=== PATIENT | female | born 1965 | race Caucasian/White ===

== ENCOUNTER 2020-10-18 12:15 | Inpatient (IN) | payer MEDICARE, SELFPAY ==
[2020-10-18] VITALS (20 sets, daily range): BP systolic 130–166; BP diastolic 53–93; PULSE 78–86; RESP 15–23; TEMP 37.5–38.8; O2SAT 88–97; BMI 35.5
--- NOTE | ~2020-10-18 | XR_ITS ---
XR chest 2V 10/18/2020 12:57 Indication: Shortness of breath. Midsternal chest pain. Procedure: 2 view chest Comparison: No prior studies for comparison. Findings: Right basilar airspace disease, consistent with pneumonia. Small right pleural effusion. He art size is normal. Left lung clear. No pneumothorax. No edema. No acute osseous abnormality. Impression: 1: Right basilar airspace disease, consistent with pneumonia. Reviewed, dictated and finalized at location B. Impression: 1: Right basilar airspace disease, consistent with pneumonia.
--- NOTE | 2020-10-18 12:19 | ECG_ITS ---
Measurements Intervals [place] Rate: 86 P: 151 MT: 159 QRS: 222 QRSD: 111 T: 126 QT: 351 QTc: 421 Interpretive Statements SINUS RHYTHM LIMB LEAD REVERSAL POOR R WAVE PROGRESSION, ANTERIOR LEADS BORDERLINE ECG Electronically Signed On 10-18-2020 13:11:18 CDT by Grant Moore D.O.
[2020-10-18 12:49] LABS: Basophils Percent Auto 0.3 % (0.2-1.2); Hematocrit 42.1 % (37.0-47.0); Hemoglobin 13.8 g/dL (12.0-15.0); Immature Granulocyte Absolute 0.04 K/mm3 (0.00-0.031); Immature Granulocyte Percent A 0.3 % (0-0.5); Lymphocytes Absolute Auto 0.91 K/mm3 (0.9-3.2); Lymphocytes Percent Auto 7.8 % (18.3-44.2); Mean Corpuscular HGB Conc 32.8 g/dl (32-36); Mean Corpuscular Hemoglobin 31.9 pg (26-34); Mean Corpuscular Volume 97.2 fl (80-100); Mean Platelet Volume 9.4 fl (7.4-10.4); Monocytes Absolute Auto 1.1 K/mm3 (0.1-0.6); Neutrophils Absolute Auto 9.7 K/mm3 (1.3-6.7); Neutrophils Percent Auto 82.6 % (45.5-73.1); Platelet Count Result 179 k/mm3 (150-375); Red Blood Count 4.33 M/mm3 (4.2-5.4); Red Cell Distribution Width 12.2 % (11.5-14.5); White Blood Count 11.7 K/mm3 (4.5-10.0)
[2020-10-18 13:08] LABS: Anion Gap 5 mmol/L (8-16); Blood Urea Nitrogen 11 mg/dL (7-17); Calcium 9.1 mg/dL (8.4-10.2); Carbon Dioxide 31 mmol/L (22-30); Chloride 102 mmol/L (98-107); Estimated CRCL calculation 102 ml/min; Estimated Glomerular Filt Rate > 60; Glucose 126 mg/dL (65-105); Potassium 3.9 mmol/L (3.4-5.0); Sodium 138 mmol/L (137-145)
--- NOTE | 2020-10-18 13:18 | ED.SOB ---
HPI - SOB/Dyspnea General Chief Complaint: Shortness of Breath/Dyspnea Stated Complaint: cough, shortness of breath Time Seen by Provider: 10/18/20 13:14 Source: RN notes reviewed History of Present Illness HPI Narrative: Patient presents emergency department from home for shortness of breath. Patient states she has a history of COPD and still smokes cigarettes states that for the past 2 days she has been feeling more short of breath with a cough this been nonproductive she notes a subjective fever with that she denies any chest pain or abdominal pain does note intermittent nausea patient states she has had both Covid vaccines with second vaccine at the beginning of September denies any other symptoms at this time Related Data Home Medications Medication Instructions Recorded Confirmed albuterol mcg INHALATION QID PRN 10/18/20 apixaban [Eliquis] 5 mg PO BID 10/18/20 diltiazem HCl BID 10/18/20 gabapentin 100 mg PO DAILY 10/18/20 gabapentin 300 mg PO HS 10/18/20 lisinopril 20 mg PO BID 10/18/20 oxycodone 7.5 mg PO Q8H PRN 10/18/20 10/18/20 Allergies Allergy/AdvReac Type Severity Reaction Status Date / Time No Known Allergies Allergy Verified 10/18/20 13:07 Review of Systems Review of Systems: Narrative: Gen.: See HPI Eyes: Denies eye pain or visual change ENT: Denies congestion Respiratory: Reports cough and shortness of breath CV: Denies chest pain or palpitations GI: Denies abdominal pain emesis or diarrhea reports nausea Musculoskeletal: Denies back pain or muscle pain Neuro: Denies numbness, tingling, weakness or focal weakness Skin: Denies rash Except as documented, all other systems reviewed and negative [facility] Past Medical History Medical History (Updated 10/18/20 @ 14:07 by Ronan Vizcarra DO) COPD (chronic obstructive pulmonary disease) Social History Social History (Updated 10/18/20 @ 13:20 by Ronan Vizcarra DO) Smoking status: Current every day smoker Gender identity (if verbalized by the patient): Female Exam Narrative: Exam Narrative: APPEARANCE: No acute distress, nontoxic, resting in bed EYES: EOMI HEENT: Normocephalic, atraumatic, OMM RESPIRATORY: No respiratory distress wheezing throughout the bilateral lung palm with coarse breath sounds in the bases CARDIOVASCULAR: Regular rate and rhythm without murmurs rubs or gallops. ABDOMINAL: Soft, nontender, nondistended, no rebound or guarding MUSCULOSKELETAl: Moves all extremities. No clubbing, cyanosis or edema. NEURO: Awake and alert. Following commands, speech normal, no focal deficits SKIN:: Warm, dry. No rashes lesions or abrasions PSYCHIATRIC: Normal affect/mood, Course Course Emergency Course: Discussed with RADHA Butt for Dr Patino presentation work-up agrees with admission at this time. Agrees with plan to swab for Covid Discussed with patient and family results of workup and diagnosis. Discussed need for admission. Patient and family understand and agree to current treatment plan Vital Signs Vital signs: Vital Signs Temperature 101.8 F H 10/18/20 12:29 Pulse Rate 86 10/18/20 12:29 Respiratory Rate 18 10/18/20 12:29 Blood Pressure 141/93 H 10/18/20 12:29 Pulse Oximetry 88 L 10/18/20 12:29 Temperature 101.8 F H 10/18/20 12:29 Pulse Rate 78 10/18/20 13:40 Respiratory Rate 18 10/18/20 13:40 Blood Pressure 163/79 H 10/18/20 13:03 Pulse Oximetry 91 10/18/20 13:07 MDM - SOB/Dyspnea Lab Data Result diagrams: 10/18/20 12:42 10/18/20 12:42 Labs: Lab Results 10/18/20 10/18/20 10/18/20 Range/Units 12:42 12:42 13:32 WBC 11.7 H (4.5-10.0) K/mm3 RBC 4.33 (4.2-5.4) M/mm3 Hgb 13.8 (12.0-15.0) g/dL Hct 42.1 (37.0-47.0) % MCV 97.2 (80-100) fl MCH 31.9 (26-34) pg MCHC 32.8 (32-36) g/dl RDW 12.2 (11.5-14.5) % Plt Count 179 (150-375) k/mm3 MPV 9.4 (7.4-10.4) fl Immature Gran % (Auto) 0.3 (0-0.5) % N
[2020-10-18] MEDS: ALBUTEROL SULFATE NEB 2.5 MG/0.5 ML INH 5 MG INHALATION ×2 (13:29→21:44)
[2020-10-18] MEDS: IPRATROPIUM BR 0.02% INH SOLN 0.5 MG/2.5 ML VIAL INHALATION ×2 (13:30→21:44)
[2020-10-18 14:00] LABS: Lactic Acid Reflex 0.7 mmol/L (0.7-2.1)
[2020-10-18] MEDS: SODIUM CHLORIDE 0.9% IV 1,000 ML 999 ML IV CONT (14:49)
--- NOTE | 2020-10-18 15:30 | PM.IMHP ---
H&P: HPI History of Present Illness Date/Time: 10/18/20 15:30 Chief Complaint: Shortness of breath. Narrative: This is a 54-year-old female smoker with paroxysmal atrial fibrillation, history of pulmonary embolism, chronic obstructive pulmonary disease, and hypertension who presented to the emergency department earlier today via private vehicle from home for evaluation of shortness of breath. She has not been feeling well for a couple of days with symptoms to include chills, nausea, body aches, sore throat, nonproductive cough, and shortness of breath. She and her grand children are traveling through the area on their way back to [place], and she does report that her granddaughter had similar upper respiratory symptoms at [facility] attributed to allergies however she was recently diagnosed with an ear infection. On arrival to the emergency department her SpO2 was 90% and she was found to have right basilar pneumonia and she is being admitted in this setting. She does report having a history of pneumonia and this feels similar to those previous episodes. She received her 2nd shot in the Moderna COVID vaccination series within the past 2 and half weeks. She has no known exposure to those positive for COVID-19. She has not had a documented fever but reports subjective fever. She has some mild pleuritic pain on the right but no exertional chest pain. She denies orthopnea, PND, and lower extremity edema. Appetite has not been good but no significant nausea or vomiting. She denies anosmia and dysgeusia. Review of Systems Review of Systems: Narrative: Twelve systems were reviewed with pertinent positives and negatives as per HPI. No significant headache. No earache. She denies exertional chest pain. No significant wheezing. Denies vomiting. Has had some loose stools but no overt diarrhea. No dysuria. Except as documented, all other systems were reviewed and are negative. [facility] Past Medical History Medical History Anxiety Chronic anticoagulation Chronic obstructive pulmonary disease Chronic pain History of pulmonary embolism Hypertension Paroxysmal atrial fibrillation Tobacco dependence Surgical History Surgical History (Updated 10/18/20 @ 23:23 by Filomena Mckeon PA-C) History of tubal ligation Family History Family History (Updated 10/18/20 @ 23:23 by Filomena Mckeon PA-C) Other Hypertension Social History Social History (Updated 10/18/20 @ 23:24 by Filomena Mckeon PA-C) Social History: The patient lives in [place] with her grand children whom she was recently awarded custody of after her daughter was murdered a couple of years ago. She smokes about a pack of cigarettes per day. Denies alcohol and illicit substance abuse. Unemployed, on disability. She designates her significant other, Reuben Shafer, as her surrogate decision maker. Code status: Full code. Smoking packs per day: 1 Smoking cigarettes per day: 20.0 Years smoked: 38 Smoking pack-years: 38.00 Smoking status: Current every day smoker Tobacco type: cigarettes Alcohol intake: current Drinks per week: 1 Substance use: never Gender identity (if verbalized by the patient): Female Spiritual care concerns: No Meds Home Medications and Allergies Home Medications Medication Instructions Recorded Confirmed Type albuterol 90 mcg INHALATION QID PRN 10/18/20 10/18/20 History apixaban [Eliquis] 5 mg PO BID 10/18/20 10/18/20 History bupropion HCl 150 mg PO DAILY 10/18/20 10/18/20 History bupropion HCl 300 mg PO HS 10/18/20 10/18/20 History diltiazem HCl 30 mg PO BID 10/18/20 10/18/20 History gabapentin 100 mg PO DAILY 10/18/20 10/18/20 History gabapentin 200 mg PO HS 10/18/20 10/18/20 History lisinopril 20 mg PO BID 10/18/20 10/18/20 History oxycodone 7.5 mg PO Q8H PRN 10/18/20 10/18/20 History Allergies Allergy/AdvReac Type Severity Reaction Status Date / Time
--- NOTE | 2020-10-18 16:27 | PC.NURSE ---
This patient, Dayna Tinoco, was admitted to [facility] Surg Room 320-01. Patient/family oriented to hospital policies and general routines including ID bracelet, bed and alarms, visiting hours, pain management, procedures, bathroom and other care routines, personal items, smoking policy, room service/diet, and visiting hours. Information on how to activate the Rapid Response Team has been discussed. Patient/Family are encouraged to report perceived risks to care and to ask questions if they do not understand what they are told or what they should do.
[2020-10-19] VITALS (17 sets, daily range): BP systolic 106–152; BP diastolic 59–83; PULSE 67–86; RESP 18–20; TEMP 36.4–37.9; O2SAT 90–95
[2020-10-19] MEDS: APIXABAN 5 MG TABLET PO ×3 (00:21→17:04)
[2020-10-19] MEDS: dilTIAZem HCL 30 MG TABLET PO ×3 (00:22→20:51)
[2020-10-19] MEDS: buPROPion HCL XL (24 HR) 150 MG TABCR 300 MG PO ×2 (00:22→20:53)
[2020-10-19] MEDS: guaiFENesin 12 HR 600 MG TABCR PO ×3 (00:23→20:54)
[2020-10-19] MEDS: GABAPENTIN 100 MG CAPSULE 200 MG PO ×2 (00:23→20:52)
[2020-10-19] MEDS: lisinopriL 20 MG TABLET PO ×3 (00:24→20:52)
[2020-10-19] MEDS: ALBUTEROL SULFATE NEB 2.5 MG/0.5 ML INH 5 MG INHALATION ×3 (03:28→21:22)
[2020-10-19] MEDS: IPRATROPIUM BR 0.02% INH SOLN 0.5 MG/2.5 ML VIAL INHALATION ×3 (03:28→21:23)
[2020-10-19 06:39] LABS: Basophils Percent Auto 0.2 % (0.2-1.2); Eosinophils Percent Auto 0.2 % (0-4.4); Hemoglobin 12.1 g/dL (12.0-15.0); Immature Granulocyte Absolute 0.03 K/mm3 (0.00-0.031); Immature Granulocyte Percent A 0.3 % (0-0.5); Lymphocytes Absolute Auto 1.57 K/mm3 (0.9-3.2); Lymphocytes Percent Auto 16.4 % (18.3-44.2); Mean Corpuscular HGB Conc 31.8 g/dl (32-36); Mean Corpuscular Hemoglobin 31.3 pg (26-34); Mean Corpuscular Volume 98.2 fl (80-100); Mean Platelet Volume 9.9 fl (7.4-10.4); Monocytes Percent Auto 10.1 % (2.6-8.5); Neutrophils Percent Auto 72.8 % (45.5-73.1); Platelet Count Result 172 k/mm3 (150-375); Red Blood Count 3.87 M/mm3 (4.2-5.4); Red Cell Distribution Width 12.4 % (11.5-14.5); White Blood Count 9.6 K/mm3 (4.5-10.0)
[2020-10-19 07:05] LABS: Alanine Aminotransferase 37 U/L (4-35); Albumin Level 3.7 g/dL (3.5-5.1); Alkaline Phosphatase 123 U/L (38-126); Anion Gap 4 mmol/L (8-16); Aspartate Amino Transferase 43 U/L (14-36); Bilirubin,Total 0.4 mg/dL (0.2-1.3); Blood Urea Nitrogen 11 mg/dL (7-17); CRP 25.7 mg/dL (<1.0); Calcium 8.8 mg/dL (8.4-10.2); Carbon Dioxide 31 mmol/L (22-30); Chloride 105 mmol/L (98-107); Estimated CRCL calculation 102 ml/min; Estimated Glomerular Filt Rate > 60; Glucose 95 mg/dL (65-105); Magnesium 2.1 mg/dL (1.6-2.3); Potassium 3.6 mmol/L (3.4-5.0); Sodium 140 mmol/L (137-145)
[2020-10-19 09:03] LABS: Lactate Dehydrogenase 468 U/L (313-618)
[2020-10-19] MEDS: buPROPion HCL XL (24 HR) 150 MG TABCR PO (09:30)
[2020-10-19] MEDS: GABAPENTIN 100 MG CAPSULE PO (09:30)
[2020-10-19] MEDS: BUDESONIDE/FORMOTEROL (*SP) 160-4.5 MCG 6 GM INH 2 PUFF INHALATION ×2 (09:51→21:22)
--- NOTE | 2020-10-19 14:20 | PM.IMPN ---
Progress Note: A&P Assessment and Plan (1) Acute respiratory failure with hypoxia: Code(s): J96.01 - Acute respiratory failure with hypoxia Status: Acute Assessment and Plan: The patient is a 54-year-old woman with a history of tobacco abuse, hypertension, paroxysmal atrial fibrillation on Eliquis, who presented to the emergency room for shortness of breath, productive cough, confusion and lightheadedness which has been gradually worsening over the last 2 days. The patient is currently traveling with her family and on her way back home to [place]. She just finished her COVID vaccination about 2 and half weeks ago. she decided to come to the emergency room after she was feeling very weak, fatigued, short of breath and lightheaded for further evaluation. Initial vitals show she has a fever of 101.8?, non tachycardic, respiratory rate 18, blood pressure 141/93, oxygen saturation was hypoxic at 88% on room air. Initial labs show leukocytosis at 11,700, with elevated neutrophils 82%. Normal CMP other than elevated glucose at 126. CRP was elevated at 25. Chest x-ray shows right basilar airspace disease consistent with pneumonia. Due to recent travel and new shortness of breath with hypoxia the patient is being screened for COVID-19. She was admitted into the hospital in an isolation room for acute hypoxia respiratory failure, pneumonia on IV antibiotics and COPD exacerbation on IV Solu-Medrol. Blood culture showed no growth at this time pending COVID test continue IV antibiotics continue DuoNeb treatments q.6 hours will start IV Solu-Medrol for acute COPD exacerbation due to increased wheezing on examination continue to wean oxygen as tolerated. Continue monitoring respiratory status. (2) Community acquired pneumonia: Code(s): J18.9 - Pneumonia, unspecified organism Status: Acute Assessment and Plan: The patient has been started on azithromycin and ceftriaxone for presumed community-acquired pneumonia. Sputum to be attempted for culture. continue monitoring. (3) Person under investigation for COVID-19: Code(s): Z20.822 - Contact with and (suspected) exposure to COVID-19 Status: Acute Assessment and Plan: Patient will remain in isolation pending SARS-CoV-2 by PCR. (4) Hypertension: Code(s): I10 - Essential (primary) hypertension Status: Acute Assessment and Plan: Blood pressure normal at 136/73 this morning. Continue antihypertensives and monitor closely. (5) Paroxysmal atrial fibrillation: Code(s): I48.0 - Paroxysmal atrial fibrillation Status: Acute Assessment and Plan: Currently in a sinus rhythm. Continue diltiazem and Eliquis. (6) Chronic obstructive pulmonary disease: Code(s): J44.9 - Chronic obstructive pulmonary disease, unspecified Status: Acute Assessment and Plan: she is having increased wheezing today on my examination. I am going to start IV Solu-Medrol, scheduled DuoNebs q.6 hours and continue monitoring her respiratory status. (7) Tobacco dependence: Code(s): F17.200 - Nicotine dependence, unspecified, uncomplicated Status: Acute Assessment and Plan: Smoking cessation was discussed for 3 minutes. She declines the need for a nicotine patch at this time. She is interested in quitting after discharge since she has already gone 3 days without a cigarette (8) Chronic anticoagulation: Code(s): Z79.01 - FDC (current) use of anticoagulants Status: Acute Assessment and Plan: Continue apixaban.
--- NOTE | 2020-10-19 15:38 | PCRCNOTE ---
Window of time for administration has passed. See next scheduled administration.
[2020-10-19 16:57] LABS: SARS-CoV-2 RNA PCR Negative
[2020-10-19] MEDS: ACETAMINOPHEN 325 MG TABLET 650 MG PO (17:04)
[2020-10-19] MEDS: methylPREDNISolone SOD SUCC 125 MG VIAL IV PUSH (17:05)
[2020-10-19] MEDS: oxyCODONE HCL (*CRX) 5 MG TAB IR PO ×2 (17:15→21:53)
[2020-10-19] MEDS: oxyCODONE HCL (*CRX) 2.5 MG TAB IR PO (17:15)
[2020-10-20] VITALS (15 sets, daily range): BP systolic 116–161; BP diastolic 64–85; PULSE 70–88; RESP 14–20; TEMP 36.5–37.2; O2SAT 92–98
[2020-10-20] MEDS: methylPREDNISolone SOD SUCC 125 MG VIAL 60 MG IV PUSH ×4 (01:11→17:14)
[2020-10-20] MEDS: IPRATROPIUM BR 0.02% INH SOLN 0.5 MG/2.5 ML VIAL INHALATION ×3 (02:50→21:01)
[2020-10-20] MEDS: ALBUTEROL SULFATE NEB 2.5 MG/0.5 ML INH 5 MG INHALATION ×3 (02:50→21:01)
[2020-10-20] MEDS: ACETAMINOPHEN 325 MG TABLET 650 MG PO (05:36)
[2020-10-20 07:21] LABS: Alanine Aminotransferase 51 U/L (4-35); Albumin Level 3.9 g/dL (3.5-5.1); Alkaline Phosphatase 148 U/L (38-126); Anion Gap 8 mmol/L (8-16); Aspartate Amino Transferase 48 U/L (14-36); Bilirubin,Total 0.1 mg/dL (0.2-1.3); Blood Urea Nitrogen 14 mg/dL (7-17); CRP 23.2 mg/dL (<1.0); Calcium 9.2 mg/dL (8.4-10.2); Carbon Dioxide 29 mmol/L (22-30); Chloride 106 mmol/L (98-107); Estimated CRCL calculation 117 ml/min; Estimated Glomerular Filt Rate > 60; Glucose 171 mg/dL (65-105); Potassium 3.6 mmol/L (3.4-5.0); Sodium 143 mmol/L (137-145)
[2020-10-20] MEDS: dilTIAZem HCL 30 MG TABLET PO ×2 (10:17→20:43)
[2020-10-20] MEDS: buPROPion HCL XL (24 HR) 150 MG TABCR PO (10:17)
[2020-10-20] MEDS: guaiFENesin 12 HR 600 MG TABCR PO ×2 (10:17→20:43)
[2020-10-20] MEDS: GABAPENTIN 100 MG CAPSULE PO (10:18)
[2020-10-20] MEDS: lisinopriL 20 MG TABLET PO ×2 (10:18→20:43)
[2020-10-20] MEDS: APIXABAN 5 MG TABLET PO ×2 (10:18→17:14)
[2020-10-20] MEDS: oxyCODONE HCL (*CRX) 2.5 MG TAB IR PO (10:20)
[2020-10-20] MEDS: oxyCODONE HCL (*CRX) 5 MG TAB IR PO ×2 (10:20→20:49)
--- NOTE | 2020-10-20 10:26 | PCRCNOTE ---
Window of time for administration has passed. See next scheduled administration.
--- NOTE | 2020-10-20 15:24 | PM.IMPN ---
Progress Note: A&P Assessment and Plan (1) Acute respiratory failure with hypoxia: Code(s): J96.01 - Acute respiratory failure with hypoxia Status: Acute Assessment and Plan: The patient is a 54-year-old woman with a history of tobacco abuse, hypertension, paroxysmal atrial fibrillation on Eliquis, who presented to the emergency room for shortness of breath, productive cough, confusion and lightheadedness which has been gradually worsening over the last 2 days. The patient is currently traveling with her family and on her way back home to [place]. She just finished her COVID vaccination about 2 and half weeks ago. she decided to come to the emergency room after she was feeling very weak, fatigued, short of breath and lightheaded for further evaluation. Initial vitals show she has a fever of 101.8?, non tachycardic, respiratory rate 18, blood pressure 141/93, oxygen saturation was hypoxic at 88% on room air. Initial labs show leukocytosis at 11,700, with elevated neutrophils 82%. Normal CMP other than elevated glucose at 126. CRP was elevated at 25. Chest x-ray shows right basilar airspace disease consistent with pneumonia. Due to recent travel and new shortness of breath with hypoxia the patient is being screened for COVID-19. She was admitted into the hospital in an isolation room for acute hypoxia respiratory failure, pneumonia on IV antibiotics and COPD exacerbation on IV Solu-Medrol. Blood culture showed no growth at this time COVID test Negative continue IV antibiotics for pneumonia COPD exacerbation-continue DuoNeb treatments q.6 hours and continue Solu-Medrol continue to wean oxygen as tolerated. Continue monitoring respiratory status. (2) Community acquired pneumonia: Code(s): J18.9 - Pneumonia, unspecified organism Status: Acute Assessment and Plan: The patient has been started on azithromycin and ceftriaxone for presumed community-acquired pneumonia. Sputum to be attempted for culture. continue monitoring. (3) Person under investigation for COVID-19: Code(s): Z20.822 - Contact with and (suspected) exposure to COVID-19 Status: Acute Assessment and Plan: Patient will remain in isolation pending SARS-CoV-2 by PCR. (4) Hypertension: Code(s): I10 - Essential (primary) hypertension Status: Acute Assessment and Plan: Blood pressure normal at 147/85 this morning. Continue antihypertensives and monitor closely. (5) Paroxysmal atrial fibrillation: Code(s): I48.0 - Paroxysmal atrial fibrillation Status: Acute Assessment and Plan: Currently in a sinus rhythm. Continue diltiazem and Eliquis. (6) Chronic obstructive pulmonary disease: Code(s): J44.9 - Chronic obstructive pulmonary disease, unspecified Status: Acute Assessment and Plan: she is having increased wheezing today on my examination. I am going to start IV Solu-Medrol, scheduled DuoNebs q.6 hours and continue monitoring her respiratory status. (7) Tobacco dependence: Code(s): F17.200 - Nicotine dependence, unspecified, uncomplicated Status: Acute Assessment and Plan: Smoking cessation was discussed for 3 minutes. She declines the need for a nicotine patch at this time. She is interested in quitting after discharge since she has already gone 3 days without a cigarette (8) Chronic anticoagulation: Code(s): Z79.01 - FPC (current) use of anticoagulants Status: Acute Assessment and Plan: Continue apixaban. T
[2020-10-20] MEDS: buPROPion HCL XL (24 HR) 150 MG TABCR 300 MG PO (20:42)
[2020-10-20] MEDS: GABAPENTIN 100 MG CAPSULE 200 MG PO (20:44)
[2020-10-20] MEDS: BUDESONIDE/FORMOTEROL (*SP) 160-4.5 MCG 6 GM INH 2 PUFF INHALATION (21:09)
[2020-10-21] VITALS (16 sets, daily range): BP systolic 147–167; BP diastolic 74–96; PULSE 71–113; RESP 16–22; TEMP 36.4–36.7; O2SAT 87–93
[2020-10-21] MEDS: methylPREDNISolone SOD SUCC 125 MG VIAL 60 MG IV PUSH ×2 (01:09→05:20)
[2020-10-21] MEDS: ALBUTEROL SULFATE NEB 2.5 MG/0.5 ML INH 5 MG INHALATION ×4 (01:25→20:53)
[2020-10-21] MEDS: IPRATROPIUM BR 0.02% INH SOLN 0.5 MG/2.5 ML VIAL INHALATION ×4 (01:25→20:53)
[2020-10-21] MEDS: APIXABAN 5 MG TABLET PO ×2 (08:02→17:53)
[2020-10-21] MEDS: dilTIAZem HCL 30 MG TABLET PO ×2 (08:02→20:03)
[2020-10-21] MEDS: buPROPion HCL XL (24 HR) 150 MG TABCR PO (08:02)
[2020-10-21] MEDS: guaiFENesin 12 HR 600 MG TABCR PO ×2 (08:02→19:58)
[2020-10-21] MEDS: lisinopriL 20 MG TABLET PO ×2 (08:02→19:58)
[2020-10-21] MEDS: GABAPENTIN 100 MG CAPSULE PO (08:02)
[2020-10-21] MEDS: oxyCODONE HCL (*CRX) 5 MG TAB IR PO ×2 (08:05→17:50)
[2020-10-21] MEDS: oxyCODONE HCL (*CRX) 2.5 MG TAB IR PO ×2 (08:06→17:50)
[2020-10-21] MEDS: BUDESONIDE/FORMOTEROL (*SP) 160-4.5 MCG 6 GM INH 2 PUFF INHALATION ×2 (08:34→20:53)
[2020-10-21] MEDS: ACETAMINOPHEN 325 MG TABLET 650 MG PO (14:10)
--- NOTE | 2020-10-21 15:38 | HOMEO2EVAL ---
Evaluation was performed at [facility] Home Oxygen Evaluation RC: Home Oxygen (O2) Evaluation Start: 10/21/20 08:54 Freq: ONCE Status: Active Protocol: RPE Activity Type Activity Date Activity User E-Sign Co-Sign Detail Recorded Client Recorded Date Recorded By Document 10/21/20 15:00 EDMOND [id number] 10/21/20 15:38 EDMOND Document 10/21/20 15:03 EDMOND [id number] 10/21/20 15:38 EDMOND Document 10/21/20 15:05 EDMOND [id number] 10/21/20 15:38 EDMOND Document 10/21/20 15:15 EDMOND [id number] 10/21/20 15:38 EDMOND 10/21/20 10/21/20 10/21/20 15:00 15:03 15:05 Home O2 Evaluation Test Phase Resting Exercise Exercise Oxygen Delivery Room Air Room Air Nasal Cannula Oxygen Flow Rate (L/min) 1 Pulse Oximetry (90-100 %) 91 87 L 93 Pulse Rate (60-100 beats/min) 80 113 H Home Oxygen Evaluation Comments PT REQUIRES 1 L WITH ACTIVITY/ EXERTION Treatment Charges O2 Evaluation - Inpatient 10/21/20 15:15 Home O2 Evaluation Test Phase Resting Oxygen Delivery Room Air Oxygen Flow Rate (L/min) Pulse Oximetry (90-100 %) 90 Pulse Rate (60-100 beats/min) 88 Home Oxygen Evaluation Comments Treatment Charges
--- NOTE | 2020-10-21 15:39 | PCRCNOTE ---
HOME O2 EVAL DONE, PT REQUIRES 1 L WITH EXERTION. CURRENTLY PT IS RETURNING TO [facility] IN [place] FOR A COUPLE DAYS, THEN WILL DRIVE BACK TO [place]. [facility] HAS [facility]ATION[facility]IDE LOCATIONS, I CAN DELIVER HER A TANK FOR TRANSPORT TO [facility]...ONCE THERE [facility] WILL DELIVER CONCENTRATOR AND MORE TANKS. ONCE PT IS READY TO DRIVE HOME, [facility] WILL HAVE ARRANGED AN ACCT WITH [facility] IN [place] TO FOLLOW UP ONCE BACK HOME.
--- NOTE | 2020-10-21 16:03 | PM.IMPN ---
Progress Note: A&P Assessment and Plan (1) Acute respiratory failure with hypoxia: Code(s): J96.01 - Acute respiratory failure with hypoxia Status: Acute Assessment and Plan: The patient is a 54-year-old woman with a history of tobacco abuse, hypertension, paroxysmal atrial fibrillation on Eliquis, who presented to the emergency room for shortness of breath, productive cough, confusion and lightheadedness which has been gradually worsening over the last 2 days. The patient is currently traveling with her family and on her way back home to [place]. She just finished her COVID vaccination about 2 and half weeks ago. she decided to come to the emergency room after she was feeling very weak, fatigued, short of breath and lightheaded for further evaluation. Initial vitals show she has a fever of 101.8?, non tachycardic, respiratory rate 18, blood pressure 141/93, oxygen saturation was hypoxic at 88% on room air. Initial labs show leukocytosis at 11,700, with elevated neutrophils 82%. Normal CMP other than elevated glucose at 126. CRP was elevated at 25. Chest x-ray shows right basilar airspace disease consistent with pneumonia. Due to recent travel and new shortness of breath with hypoxia the patient is being screened for COVID-19. She was admitted into the hospital in an isolation room for acute hypoxia respiratory failure, pneumonia on IV antibiotics and COPD exacerbation on IV Solu-Medrol. Blood culture showed no growth at this time COVID test Negative continue IV antibiotics for pneumonia COPD exacerbation-continue DuoNeb treatments q.6 hours and switched Solu- medrol to PO Prednisone 60 mg. Since continuing to have symptoms will give PO Prednisone 60 mg now at 5 pm, and tomorrow. Consider prednisone taper upon discharge with Prednisone 60 x3 days, 50 x3 days, 40 x3 days, 30 x 3 days, 20 x 3 days, 10x 3 days. Home oxygen evaluation showed the patient requires 1L with exertion. Will continue monitoring overnight and consider rechecking home oxygen requirement prior to discharge since she will be driving back to [place] in the next few days. continue to wean oxygen as tolerated. Continue monitoring respiratory status. (2) Community acquired pneumonia: Code(s): J18.9 - Pneumonia, unspecified organism Status: Acute Assessment and Plan: The patient has been started on azithromycin and ceftriaxone for presumed community-acquired pneumonia. Sputum to be attempted for culture, still not collected . continue monitoring. (3) Person under investigation for COVID-19: Code(s): Z20.822 - Contact with and (suspected) exposure to COVID-19 Status: Acute Assessment and Plan: Patient will remain in isolation pending SARS-CoV-2 by PCR. (4) Hypertension: Code(s): I10 - Essential (primary) hypertension Status: Acute Assessment and Plan: Blood pressure normal at 147/78 this morning. Continue antihypertensives and monitor closely. (5) Paroxysmal atrial fibrillation: Code(s): I48.0 - Paroxysmal atrial fibrillation Status: Acute Assessment and Plan: Currently in a sinus rhythm. Continue diltiazem and Eliquis. (6) Chronic obstructive pulmonary disease: Code(s): J44.9 - Chronic obstructive pulmonary disease, unspecified Status: Acute Assessment and Plan: Wheezing improved today, but still present. Continue DuoNeb treatments q.6 hours and switched Solu- medrol to PO Prednisone 60 mg. Since continuing to have symptoms will give PO Prednisone 60 mg now at 5 pm, and tomorrow morning. Consider prednisone taper upon discharge with Prednisone 60 x3 days, 50 x3 days, 40 x3 days, 30 x 3 days, 2
--- NOTE | 2020-10-21 16:15 | PCRCNOTE ---
JUST INFORMED PT WILL BE STAYING OVERNIGHT TONIGHT, RECHECKING FOR O2 NEEDS IN THE A.M. TO SEE IF STILL NEEDED AT ALL. THERE IS A TANK IN HER ROOM READY FOR D/C. I WAS UNABLE TO CONTACT RADHA THRU [employer].
[2020-10-21 16:59] LABS: Pneumococcal Antigen Urine Not Detected (Not Detected)
[2020-10-21] MEDS: predniSONE 20 MG TABLET 60 MG PO (17:46)
[2020-10-21] MEDS: buPROPion HCL XL (24 HR) 150 MG TABCR 300 MG PO (20:01)
[2020-10-21] MEDS: GABAPENTIN 100 MG CAPSULE 200 MG PO (20:01)
[2020-10-22] VITALS (12 sets, daily range): BP systolic 143–147; BP diastolic 85–90; PULSE 73–83; RESP 16–20; TEMP 36.9; O2SAT 86–93
[2020-10-22] MEDS: ALBUTEROL SULFATE NEB 2.5 MG/0.5 ML INH 5 MG INHALATION ×2 (08:38→14:05)
[2020-10-22] MEDS: IPRATROPIUM BR 0.02% INH SOLN 0.5 MG/2.5 ML VIAL INHALATION ×2 (08:38→14:06)
[2020-10-22] MEDS: BUDESONIDE/FORMOTEROL (*SP) 160-4.5 MCG 6 GM INH 2 PUFF INHALATION (08:39)
[2020-10-22] MEDS: lisinopriL 20 MG TABLET PO (09:10)
[2020-10-22] MEDS: buPROPion HCL XL (24 HR) 150 MG TABCR PO (09:10)
[2020-10-22] MEDS: guaiFENesin 12 HR 600 MG TABCR PO (09:10)
[2020-10-22] MEDS: dilTIAZem HCL 30 MG TABLET PO (09:10)
[2020-10-22] MEDS: GABAPENTIN 100 MG CAPSULE PO (09:10)
[2020-10-22] MEDS: APIXABAN 5 MG TABLET PO (09:10)
[2020-10-22] MEDS: oxyCODONE HCL (*CRX) 2.5 MG TAB IR PO (09:18)
[2020-10-22] MEDS: oxyCODONE HCL (*CRX) 5 MG TAB IR PO (09:19)
--- NOTE | 2020-10-22 11:42 | PCRCNOTE ---
HOME O2 EVAL HAS BEEN REPREATED. NO CHANGED FROM PREVIOUS TEST. 1 LITER WITH EXERTION. PT HAS TANK IN ROOM, READY FOR DISCHARGE. [facility] HAS ALL DOCUMENTATION REQUIRED AND WILL CONTACT/FOLLOW UP WITH PT UPON DISCHARGE.
--- NOTE | 2020-10-22 13:12 | P.DS_ITS ---
DS: Admitting Diagnosis Admitting Diagnosis Admitting Diagnosis: Acute respiratory failure with hypoxemia DS: Discharge Diagnosis Discharge Diagnosis (1) Acute respiratory failure with hypoxia: Code(s): J96.01 - Acute respiratory failure with hypoxia Status: Acute Assessment and Plan: The patient is a 54-year-old woman with a history of tobacco abuse, hypertension, paroxysmal atrial fibrillation on Eliquis, who presented to the emergency room for shortness of breath, productive cough, confusion and lighth eadedness which has been gradually worsening over the last 2 days. The patient is currently traveling with her family and on her way back home to [place]. She just finished her COVID vaccination about 2 and half weeks ago. she decided to come to the emergency room after she was feeling very weak, fatigued, short of breath and lightheaded for further evaluation. Initial vitals show she has a fever of 101.8?, non tachycardic, respiratory rate 18, blood pressure 141/93, oxygen saturation was hypoxic at 88% on room air. Initial labs show leukocytosis at 11,700, with elevated neutrophils 82%. Normal CMP other than elevated glucose at 126. CRP was elevated at 25. Chest x-ray shows right basilar airspace disease consistent with pneumonia. Due to recent travel and new shortness of breath with hypoxia the patient is being screened for COVID-19. She was admitted into the hospital in an isolation room for acute hypoxia respiratory failure, pneumonia on IV antibiotics and COPD exacerbation on IV Solu-Medrol. * Blood culture showed no growth at this time * COVID test Negative * continue IV antibiotics for pneumonia * COPD exacerbation-continue DuoNeb treatments q.6 hours and switched Solu- medrol to PO Prednisone 60 mg. Since continuing to have symptoms will give PO Prednisone 60 mg now at 5 pm, and tomorrow. * Consider prednisone taper upon discharge with Prednisone 60 x3 days, 50 x3 days, 40 x3 days, 30 x 3 days, 20 x 3 days, 10x 3 days. * Home oxygen evaluation showed the patient requires 1L with exertion. Will continue monitoring overnight and consider rechecking home oxygen requirement prior to discharge since she will be driving back to [place] in the next few days. continue to wean oxygen as tolerated. Continue monitoring respiratory status. (2) Community acquired pneumonia: Code(s): J18.9 - Pneumonia, unspecified organism Status: Acute Assessment and Plan: The patient has been started on azithromycin and ceftriaxone for presumed community-acquired pneumonia. * Sputum to be attempted for culture, still not collected . continue monitoring. (3) Person under investigation for COVID-19: Code(s): Z20.822 - Contact with and (suspected) exposure to COVID-19 Status: Acute Assessment and Plan: Patient will remain in isolation pending SARS-CoV-2 by PCR. (4) Hypertension: Code(s): I10 - Essential (primary) hypertension Status: Acute Assessment and Plan: Blood pressure normal at 147/78 this morning. Continue antihypertensives and monitor closely. (5) Paroxysmal atrial fibrillation: Code(s): I48.0 - Paroxysmal atrial fibrillation Status: Acute Assessment and Plan: Currently in a sinus rhythm. Continue diltiazem and Eliquis. (6) Chronic obstructive pulmonary disease: Code(s):
[2020-10-22 18:03] LABS: Legionella pneumophila Ag Ur Not Detected (Not Detected)
== END 2020-10-22 15:50 | disposition home or self-care (01) | DRG 193 ==
LOC: ANHED 14:07 → ANH3MEDSUR 15:02
PROVIDERS: Emergency Medicine; Physician Assistant; Admitting Provider Internal Medicine; Emergency Provider Emergency Medicine; Visit Provider Nurse Practitioner
DX: J18.9 Pneumonia, unspecified organism (principal); J96.01 Acute respiratory failure with hypoxia; J44.0 Chronic obstructive pulmonary disease with (acute) lower respiratory infection; J44.1 Chronic obstructive pulmonary disease with (acute) exacerbation; Z20.822 Contact with and (suspected) exposure to COVID-19; F17.210 Nicotine dependence, cigarettes, uncomplicated; I10 Essential (primary) hypertension; I48.0 Paroxysmal atrial fibrillation; F41.9 Anxiety disorder, unspecified; Z86.711 Personal history of pulmonary embolism; Z79.01 Long term (current) use of anticoagulants
CPT/HCPCS: 36415; 71046; 80048; 80053; 82728; 83605; 83615; 83735; 85025; 86140; 87040; 87449; 87899; 93005; 94618; 94640; 94667; 96365; 96367; 96375; 99291; A9270; C9803; G0378; J0131; J0456; J0696; J2930; J7030; J7512; U0003; U0005